=== PATIENT | female | born 1955 | race Caucasian/White ===

== ENCOUNTER 2022-12-25 14:47 | Emergency (ER) | payer OTHER, MEDICARE, BC ==
[2022-12-25] MEDS ORDERED: Ibuprofen 800 MG Tab PO ONE (15:30)
== END 2022-12-25 15:40 | disposition home or self-care (01) ==
LOC: DL.ED 14:47
DX: M79.601 Pain in right arm (principal); Z88.5 Allergy status to narcotic agent; V89.2XXA Person injured in unspecified motor-vehicle accident, traffic, initial encounter; Y92.410 Unspecified street and highway as the place of occurrence of the external cause
CPT/HCPCS: 73060; 73090; 99283; A9270